=== PATIENT | female | born 1985 | race Caucasian/White ===

== ENCOUNTER 2019-10-03 20:19 | Emergency (ER) | payer MEDICAID ==
[~2019-10-03] VITALS: Ht 162.6 cm; Wt 60.0 kg
[2019-10-03] MEDS ORDERED: FOLIC ACID 1 MG, THIAMINE HCL 100 MG, MVI, ADULT NO.1 10 ML in DEXTROSE 5% WATER 1,000 ML IV ONE ×4 (22:00)
[2019-10-03 22:14] LABS: CLARITY URINE CLEAR (CLEAR); COLOR URINE YELLOW (YELLOW); KETONES URINE NEGATIVE (NEGATIVE); LEUKOCYTE ESTERASE URINE NEGATIVE (NEGATIVE); NITRITE URINE NEGATIVE (NEGATIVE); OCCULT BLOOD URINE TRACE (NEGATIVE); PH URINE 7.5 (4.5-8.0); PROTEIN URINE 1+ (NEGATIVE); SPECIFIC GRAVITY URINE 1.006 (1.005-1.030); UROBILINOGEN URINE 0.2 E.U./dL (0.2-1.0)
[2019-10-03 22:44] LABS: EOSINOPHILS % 1.4 % (0.0-5.0); HEMATOCRIT. 27.4 % (36.0-48.0); HEMOGLOBIN. 9.1 g/dL (12.0-16.0); LYMPHOCYTES % 29.2 % (20.0-50.0); MEAN CORPUSCULAR HEMOGLOBIN 26.7 pg (28.0-32.0); MEAN CORPUSCULAR VOLUME 80.8 fL (81.0-99.0); MEAN PLATELET VOLUME 6.5 fl (7.4-10.4); MONOCYTES % 11.6 % (2.0-8.0); NEUTROPHILS % 54.8 % (40.0-76.0); PLATELET 206 x1000/uL (130-400); RED BLOOD CELL COUNT 3.39 mill/uL (4.2-5.4); RED CELL DISTRIBUTION WIDTH 25.9 % (11.6-14.6)
[2019-10-03 22:51] LABS: CHLORIDE 110 mEq/L (98-107)
[2019-10-03 22:53] LABS: PROTHROMBIN TIME 9.8 sec (9.6-11.0)
[2019-10-03 23:27] LABS: HCG SCREEN NEGATIVE
[2019-10-04 03:26] VITALS: BP 138/84
[2019-10-04 07:09] LABS: PLATELET ESTIMATE NORMAL
== END 2019-10-04 04:00 | disposition home or self-care (01) ==
LOC: ER 20:19
DX: F10.229 Alcohol dependence with intoxication, unspecified (principal); S00.83XA Contusion of other part of head, initial encounter; G40.909 Epilepsy, unspecified, not intractable, without status epilepticus; J45.909 Unspecified asthma, uncomplicated; Y90.9 Presence of alcohol in blood, level not specified; Y04.0XXA Assault by unarmed brawl or fight, initial encounter; Y93.89 Activity, other specified; Y92.89 Other specified places as the place of occurrence of the external cause
CPT/HCPCS: 36415; 70450; 70486; 71045; 80053; 81003; 83690; 84703; 85025; 85610; 86850; 86900; 86901; 96365; 99284; J3411; J3490; J7070